=== PATIENT | male | born 1975 | race Two or more races ===

== ENCOUNTER 2021-12-27 12:48 | Emergency (ER) | payer MEDICAID, OTHER ==
[~2021-12-27] VITALS: Ht 170.2 cm; Wt 77.1 kg
[2021-12-27 16:32] VITALS: BP 128/74
[2021-12-27] MEDS ORDERED: IBUP800T27 PO (17:35)
[2021-12-27] MEDS ORDERED: ONDANSETRON ODT 4 MG TAB PO ONE (17:45)
[2021-12-27] MEDS ORDERED: HYDROcodone-ACET 5/325MG TAB PO ONE (17:45)
== END 2021-12-27 18:12 | disposition home or self-care (01) ==
LOC: ER 12:48
DX: S83.91XA Sprain of unspecified site of right knee, initial encounter (principal); W20.8XXA Other cause of strike by thrown, projected or falling object, initial encounter; Y93.89 Activity, other specified; Y92.89 Other specified places as the place of occurrence of the external cause; Y99.8 Other external cause status
CPT/HCPCS: 73562; 99283; Q0162